=== PATIENT | female | born 1990 | race Caucasian/White ===

== ENCOUNTER 2020-02-06 04:57 | Inpatient (IN) | payer OTHER, SELFPAY ==
[2020-02-06 05:45] VITALS: BMI 28.1
[2020-02-06] MEDS ORDERED: Misoprostol 200 MCG TAB PR PRN (06:28)
[2020-02-06] MEDS ORDERED: Butorphanol Tartrate 1 MG/ML VIAL SLOW IVP PRN (06:28)
[2020-02-06] MEDS ORDERED: Ondansetron PF 4 MG/2 ML Vial IVP PRN ×3 (06:28→09:05)
[2020-02-06] MEDS ORDERED: Lidocaine 1% (PF) 30 ML VIAL SC PRN (06:28)
[2020-02-06] MEDS ORDERED: HYDROcodone/Acetaminophen 5/325 mg Tablet PO PRN ×2 (06:28)
[2020-02-06] MEDS ORDERED: Diphenoxylate HCl/Atropine Tablet PO PRN ×2 (06:28)
[2020-02-06] MEDS ORDERED: Methylergonovine 0.2 MG/ML VIAL IM PRN (06:28)
[2020-02-06] MEDS ORDERED: hydrALAZINE 20 MG/ML VIAL SLOW IVP PRN ×2 (06:28→16:29)
[2020-02-06] MEDS ORDERED: Ibuprofen 800 MG TAB PO PRN (06:28)
[2020-02-06] MEDS ORDERED: Carboprost 250 MCG/ML AMP IM PRN (06:28)
[2020-02-06] MEDS ORDERED: Promethazine HCl 25 MG/ML VIAL IM PRN ×4 (06:28→16:29)
[2020-02-06] MEDS ORDERED: NS / Oxytocin 40 units/1000ml 1,000 ML IV PRN (06:28)
[2020-02-06] MEDS ORDERED: Acetaminophen 500 MG TAB PO PRN (06:28)
--- NOTE | 2020-02-06 06:33 | PDOC.LDHP ---
Labor and Delivery H&P Chief complaint: contractions HPI: 29 y/o at 39w2d, patient of Dr. Vickers, presents wtih ctx since 0300. Denies VB, LOF, or decreased FM. Was 1cm in clinic this week. ROS neg for HEENT, cv, pulm, gi, gu, neuro, psych, skin, musculoskeletal or constitutional symptoms other than mentioned above. OB History Details: 1 prior Current complications: none Past Medical History: None Current medications: pre-keisha vitamins Previous surgical history: none Allergies/Adverse Reactions: Allergies Allergy/AdvReac Type Severity Reaction Status Date / Time No Known Allergies Allergy Unverified 02/06/20 05:46 Social history: none - Physical Exam Vital signs reviewed and normal: yes General: NAD, resting Lungs: nonlabored breathing Abdomen: gravid Extremeties: no edema FHT: category 2 (120s, mod variability, + accels, variable deceleration to 70s upon arrival) [place] contractions every: 5-7 mins - Vaginal Exam cm dilated: 4 Effacement: 50% Station: -2 - OB Labs Blood type: O RH: positive Antibody Screen: negative HIV: negative RPR: negative HEPSAg: negative 1 hour GCT: negative GBS: negative Rubella: immune - Assessment L&D Assessment: term patient in labor (and decels with ctx on presentation) - Plan Plan: admit to L&D, labor augmentation if indicated, informed consent obtained, anesthesia consult for pain management (if desired) -: Dr. Vickers out, patient will be managed by [facility].
[2020-02-06 07:19] LABS: Hemoglobin 12.8 g/dL (12.0-16.0); Mean Corpuscular HGB CONC 35.4 g/dL (32.0-36.0); Mean Corpuscular Hemoglobin 32.1 pg (27.0-31.0); Mean Corpuscular Volume 90.7 fL (78.0-98.0); Mean Platelet Volume 9.2 fL (7.4-10.4); Platelet Count 156 thou/uL (130-400); RBC Distribution Width 11.8 % (11.5-14.5); Red Blood Cell (RBC) Count 3.99 mill/uL (4.20-5.40); White Blood Cell (WBC) Count 10.4 thou/uL (4.8-10.8)
[2020-02-06] MEDS ORDERED: Acetaminophen 325 MG TAB PO PRN ×2 (07:45→09:05)
[2020-02-06] MEDS ORDERED: Lactated Ringer's 500 ML IV PRN ×2 (07:45→09:05)
[2020-02-06] MEDS ORDERED: Hydrocerin (Eucerin) Cream 120 gm Jar TOP PRN (07:45)
[2020-02-06] MEDS ORDERED: Fentanyl 4 mcg/Bup 0.1% Cadd 100 ML in Premix Bag 1 BAG EPIDURAL SCH (07:45)
[2020-02-06] MEDS ORDERED: Fentanyl 100 MCG/2 ML VIAL SLOW IVP PRN (07:45)
[2020-02-06] MEDS ORDERED: diphenhydrAMINE 50 MG/ML VIAL IVP PRN ×2 (07:45→09:05)
[2020-02-06] MEDS ORDERED: Naloxone HCl 0.4 mg/ml Vial IV PRN ×2 (07:45)
[2020-02-06] MEDS ORDERED: ePHEDrine/0.9% NaCl/PF SYRINGE 50 mg/10 ml IV PRN (07:45)
[2020-02-06 08:06] LABS: HBSAg Index 0.19 S/CO (0-0.99); Hep B Surf Ag Non-Reactive S/CO (NonReactive); Syphilis Antibody Nonreactive (Nonreactive); Syphilis Antibody Index 0.04 S/CO (<1.00 Non-Reactive)
[2020-02-06] MEDS: Lactated Ringer's 1,000 ML IV SCH ×3 (08:30→23:22)
[2020-02-06] MEDS ORDERED: Fentanyl 100 MCG/2 ML VIAL ONE (08:35)
[2020-02-06] MEDS ORDERED: Bupivacaine 0.5% 10 ML VIAL ONE (08:35)
[2020-02-06] MEDS ORDERED: Fentanyl 100 MCG/2 ML VIAL I-THECAL ONE (09:03)
[2020-02-06] MEDS ORDERED: Bupivacaine 0.25% 10 ML VIAL EPIDURAL ONE (09:04)
[2020-02-06] MEDS ORDERED: ePHEDrine 50 MG/ML VIAL SLOW IVP PRN (09:05)
[2020-02-06] MEDS ORDERED: Naloxone HCl 0.4 mg/ml Vial IVP PRN ×2 (09:05)
[2020-02-06] MEDS ORDERED: Communication Order-Pharmacy FS PRN (09:15)
[2020-02-06] MEDS ORDERED: Fentanyl 4 mcg/Bupivacaine 0.1% Cassette 100 ML EPIDURAL SCH (09:15)
--- NOTE | 2020-02-06 11:20 | PDOC.BPN ---
- Brief Progress Note Labor check KATY in use VSS afebrile Last exam around 7cm Strip checked
--- NOTE | 2020-02-06 14:17 | PDOC.LDPN ---
Labor & Delivery Progress Note - Subjective Subjective: comfortable, vaginal pressure, loss of fluid - Objective Vital signs reviewed and normal: yes Abnormal vital signs: One low BP 0f 89/57 General: NAD Uterine fundus: tender to palpation SVE: [place] Dilation: 8 Effacement: 90% Station: -1 FHT: category 1 [place] contractions every: few on toco Other exam findings: SROM noted preexam...thin mec IUPC placed: yes FSE placed: yes - Assessment (1) Meconium in amniotic fluid Code(s): P96.83 - MECONIUM STAINING Current Visit: Yes Status: Acute Plan: continue plan of care, labor augmentation (Mec reviewed; NICU at delivery; strip ok; send gas. start oxytocin), other
[2020-02-06] MEDS: NS w/ Oxytocin 10 units 500 ML IV SCH (14:26)
[2020-02-06 16:10] LABS: SARS-CoV-2 MS2 Positive; SARS-CoV-2 N Gene Negative; SARS-CoV-2 S Gene Negative; SARS-CoV-2 by NAA Not Detected (NotDetected); SARS-CoV-2 orf1ab Negative
[2020-02-06] MEDS ORDERED: Bisacodyl 10 MG SUPP PR PRN (16:29)
[2020-02-06] MEDS ORDERED: Lanolin Ointment 7 GM TUBE TOP PRN (16:29)
[2020-02-06] MEDS ORDERED: Benzocaine-Menthol 82.5 ML CAN TOP PRN (16:29)
[2020-02-06] MEDS ORDERED: Milk Of Magnesia 30 ML UDCUP PO PRN (16:29)
[2020-02-06] MEDS ORDERED: Acetaminophen/Codeine 30-300mg Tablet PO PRN ×2 (16:29)
[2020-02-06] MEDS ORDERED: NS / Oxytocin 40 units/1000ml 1,000 ML IV SCH (16:30)
--- NOTE | 2020-02-06 16:33 | PDOC.OPDEL ---
OB Operative/Delivery Note Delivery Dr/Surgeon: Mukesh Assist: Sonam Altman RN Pre-Delivery Diagnosis: active labor, other (Meconium (thin)) Procedure/Post Delivery Dx: spontaneous vaginal delivery Anesthesia: epidural - Findings A Sex: male - 1 min: 8 (verbal, not final) - 5 min: 9 (verbal, not final) - Additional Findings/Plan Placenta delivered: spontaneous (1623 (baby delivery at 1618)) Repaired Obstetrical Laceration: 1st degree (mildine, RX under local with 2-0 vicryl. Reapporoximated due to slight ooze.) Estimated blood loss: 200 Compilations/Other Findings: NC x 1 reduced NICU present for mec Gas and plac sent counts correct 40 sec delayed cord clamp done Post delivery plan: routine recovery
[2020-02-06 16:38] LABS: Actual Bicarbonate (HCO3v) 22 mEq/L (22-28); Base Excess -2.9 mEq/L (-2.0 to +3.0); pH (Cord, venous) 7.36 (7.32-7.43)
[2020-02-06 16:41] LABS: Actual Bicarbonate (HCO3a) 19.6 mEq/L (22-28); Base Excess (BEa) -5.9 mEq/L (-2.0 to +3.0)
[2020-02-06] MEDS: Ibuprofen 800 MG TAB PO SCH (23:21)
[2020-02-06] MEDS: Docusate Calcium (SURFAK) 240 MG CAP PO SCH (23:21)
[2020-02-06] MEDS: Ferrous Sulfate 325 MG TAB PO SCH (23:22)
[2020-02-07] MEDS: Ibuprofen 800 MG TAB PO SCH ×2 (06:09→15:07)
--- NOTE | 2020-02-07 06:21 | PDOC.PP ---
Post Progress Note Post Day #: 1 Subjective: Doing well. PO intake tolerated: yes Flatus: yes Ambulation: yes Vital Signs (12 hours) Temp Pulse Resp BP Pulse Ox 02/07/20 00:25 97.8 F 67 16 115/75 02/06/20 22:25 99.6 F 75 16 112/73 97 Weight Weight 159 lb - Physical Examination General: NAD Respiratory: non-labored breathing Abdominal: no distention, appropriately TTP Extremities: negative homans (B) Skin: no rash Neurological: no gross focal deficits Psychiatric: A&Ox3, normal affect Result Diagrams: 02/07/20 06:08 Additional Labs: Post Labs Hep Bs Antigen Non-Reactive S/CO (NonReactive) 02/06/20 06:48 Blood Type O POSITIVE 02/06/20 07:45 (1) Meconium in amniotic fluid Code(s): P96.83 - MECONIUM STAINING Status: Acute - Assessment/Plan PPD1...doing well. K for PM DSCH at 24 hrs which is 1730. If needed to stay, may convert to B&B
[2020-02-07] MEDS: Ferrous Sulfate 325 MG TAB PO SCH ×2 (08:39→16:59)
[2020-02-07] MEDS: Docusate Calcium (SURFAK) 240 MG CAP PO SCH (08:39)
[2020-02-07] MEDS ORDERED: Adacel (T-DAP) 0.5 ML SYRINGE IM ONE (09:00)
[2020-02-07] MEDS ORDERED: Measles/Mumps/Rubella 10 MCG/0.5 ML VIAL SC ONE (09:00)
[2020-02-07] MEDS ORDERED: Prenatal Vitamin 1 TAB PO SCH (09:00)
[2020-02-07] MEDS ORDERED: Varicella virus, LIVE 0.5 ML VIAL SC ONE (09:00)
[2020-02-07 12:11] VITALS: BP 126/84; TEMP 97.8
[2020-02-07] MEDS: Lactated Ringer's 1,000 ML IV SCH (15:07)
[2020-02-07] MEDS: NS w/ Oxytocin 10 units 500 ML IV SCH (15:08)
== END 2020-02-07 18:35 | disposition home or self-care (01) | DRG 807 ==
LOC: L&D/OP 04:57 → L&D 06:29 → 3SW 22:44
PROVIDERS: ADMIT Obstetrics & Gynecology; ATTEND Obstetrics & Gynecology
PROC: 10E0XZZ Delivery of Products of Conception, External Approach (ICD-10-PCS; principal; 2020-02-06)
PROC: 0HQ9XZZ Repair Perineum Skin, External Approach (ICD-10-PCS; 2020-02-06)
DX: O76 Abnormality in fetal heart rate and rhythm complicating labor and delivery (principal); Z37.0 Single live birth; Z3A.39 39 weeks gestation of pregnancy; Z20.828 Contact with and (suspected) exposure to other viral communicable diseases; O77.0 Labor and delivery complicated by meconium in amniotic fluid; O69.81X0 Labor and delivery complicated by cord around neck, without compression, not applicable or unspecified; O70.0 First degree perineal laceration during delivery
CPT/HCPCS: 36415; 51702; 82805; 85014; 85018; 85027; 86780; 86850; 86900; 86901; 87340; 87635; 99285; J3010; J3490; S0020; U0003